=== PATIENT | male | born 1960 | race Asian ===

== ENCOUNTER 2017-03-05 15:32 | Emergency (ER) | payer OTHER ==
[~2017-03-05] VITALS: Ht 162.6 cm; Wt 59.0 kg
[~2017-03-05 15:32] MED LIST: LISI-661 PO; METO25 PO; OLAN10TA3 PO; RISP3 PO
[2017-03-05 16:02] VITALS: BP 183/118
[2017-03-05 16:18] LABS: GLUCOSE,POINT OF CARE 82 MG/DL (70-110)
== END 2017-03-05 18:21 | disposition home or self-care (01) ==
LOC: EMS 15:35
DX: D17.0 Benign lipomatous neoplasm of skin and subcutaneous tissue of head, face and neck (principal); I10 Essential (primary) hypertension; F17.210 Nicotine dependence, cigarettes, uncomplicated; F19.90 Other psychoactive substance use, unspecified, uncomplicated
CPT/HCPCS: 82962; 99283

== ENCOUNTER 2017-03-15 07:45 | Emergency (ER) | payer OTHER ==
[~2017-03-15] VITALS: Ht 167.6 cm; Wt 72.7 kg
[2017-03-15 08:02] LABS: GLUCOSE,POINT OF CARE 322 MG/DL (70-110)
[2017-03-15] MEDS ORDERED: HYDROCODONE/ACETAMINOPHEN 10-325 MG TABLET PO ONE (11:00)
[2017-03-15 11:41] LABS: GLUCOSE COMMENT 1 Doctor Notified; GLUCOSE,POINT OF CARE 131 MG/DL (70-110)
[2017-03-15] MEDS ORDERED: LIDOCAINE HCL/PF 1% 2 ML VIAL IM ONE (12:45)
[2017-03-15] MEDS ORDERED: CefTRIAXone SODIUM 1 GM/VIAL IM ONE (12:45)
[2017-03-15 13:22] VITALS: BP 134/96
== END 2017-03-15 13:26 | disposition home or self-care (01) ==
LOC: EMS 07:50
DX: L03.115 Cellulitis of right lower limb (principal); L03.116 Cellulitis of left lower limb; E11.9 Type 2 diabetes mellitus without complications; I10 Essential (primary) hypertension
CPT/HCPCS: 73610; 73630; 82962; 93970; 96372; 99284; J0696; J3490

== ENCOUNTER 2017-05-02 11:45 | Emergency (ER) | payer OTHER ==
[~2017-05-02] VITALS: Ht 162.6 cm; Wt 59.0 kg
[~2017-05-02 11:45] MED LIST changes: -LISI-661 PO; -METO25 PO; -RISP3 PO
[2017-05-02] MEDS ORDERED: COLC0.6T69 PO (12:04)
[2017-05-02] MEDS ORDERED: FENO160 PO (12:04)
[2017-05-02] MEDS ORDERED: ALLO300 PO (12:04)
[2017-05-02] MEDS ORDERED: CARV6 PO (12:04)
[2017-05-02] MEDS ORDERED: LISI-662 PO (12:04)
[2017-05-02 12:07] LABS: GLUCOSE,POINT OF CARE 181 MG/DL (70-110)
[2017-05-02] MEDS ORDERED: POVIDONE-IODINE 10% 15 ML SOLUTION UD TP ONE (14:45)
[2017-05-02] MEDS ORDERED: LIDOCAINE HCL 1% 10 ML VIAL INJ ONE (14:45)
[2017-05-02 15:15] VITALS: BP 111/65
[2017-05-02] MEDS ORDERED: BACITRACIN 0.9 GM PACKET OINTMENT TP ONE (15:15)
[2017-05-02] MEDS ORDERED: CefTRIAXone SODIUM 1 GM/VIAL IM ONE (15:15)
[2017-05-02] MEDS ORDERED: LIDOCAINE HCL/PF 1% 2 ML VIAL IM ONE (15:15)
[2017-05-02] MEDS ORDERED: ACETAMINOPHEN 325 MG TABLET PO ONE (15:30)
== END 2017-05-02 16:08 | disposition home or self-care (01) ==
LOC: EMS 11:48
DX: J86.9 Pyothorax without fistula (principal); L03.312 Cellulitis of back [any part except buttock and flank]; L98.9 Disorder of the skin and subcutaneous tissue, unspecified; E11.9 Type 2 diabetes mellitus without complications; I10 Essential (primary) hypertension; F17.210 Nicotine dependence, cigarettes, uncomplicated
CPT/HCPCS: 10060; 82962; 96372; 99284; J0696; J3490 ×2

== ENCOUNTER 2017-08-28 09:47 | Emergency (ER) | payer OTHER ==
[~2017-08-28] VITALS: Ht 165.1 cm; Wt 59.0 kg
[~2017-08-28 09:47] MED LIST changes: +ALLO300 PO; +CARV6 PO; +COLC0.6T67 PO; +FENO160 PO; +LISI-662 PO
[2017-08-28 11:15] LABS: BASOPHILS % (AUTO) 1.5 % (0.0-2.0); HEMATOCRIT 42.2 % (41-53); HEMOGLOBIN 14.2 g/dL (13.5-17.5); LYMPHOCYTES # (AUTO) 1.4 K/uL (1.0-4.8); LYMPHOCYTES % (AUTO) 28.2 % (22.0-44.0); MEAN CORPUSCULAR HEMOGLOBIN 31.9 pg (26.0-34.0); MEAN CORPUSCULAR HGB CONC 33.8 G/dL (31.0-37.0); MEAN CORPUSCULAR VOLUME 94 fL (80-100); MONOCYTES # (AUTO) 0.4 K/uL (0.1-1.0); MONOCYTES % (AUTO) 8.2 % (2.0-9.0); NEUTROPHILS # (AUTO) 2.2 K/uL (1.8-7.7); NEUTROPHILS % (AUTO) 42.9 % (40.0-70.0); PLATELET COUNT (AUTO) 284 K/uL (150-450); RED BLOOD CELL COUNT(AUTO) 4.47 MIL/uL (4.50-5.90); RED CELL DISTRIBUTION WIDTH 15.4 % (11.5-14.5); WHITE BLOOD COUNT (AUTO) 5.1 K/uL (4.5-11.0)
[2017-08-28 11:18] LABS: EOSINOPHILS % (AUTO) 19.2 % (1.0-6.0)
[2017-08-28 11:27] LABS: ANION GAP 7 mmol/L (8-16); CARBON DIOXIDE 31 mmol/L (22-29); CHLORIDE 103 mmol/L (98-107); CREATININE 1.17 mg/dL (0.60-1.30); GLOMERULAR FILTR. RATE CALC > 60 mL/min (>60); POTASSIUM 4.1 mmol/L (3.5-5.1); SODIUM SERUM 141 mmol/L (136-145); UREA NITROGEN, BLOOD 15 mg/dL (7-18)
[2017-08-28 11:29] LABS: PROTHROMBIN TIME 10.6 SEC (9.4-11.6)
[2017-08-28 11:32] LABS: ALANINE AMINOTRANSFERASE 22 U/L (12-78); ALBUMIN 3.6 g/dL (3.4-5.0); ASPARTATE AMINOTRANSFERASE 19 U/L (15-37); BILIRUBIN,TOTAL 0.1 mg/dL (0.1-1.0); TOTAL PROTEIN, SERUM 7.3 g/dL (6.4-8.2)
[2017-08-28 11:41] LABS: RBC MORPHOLOGY COMMENT NORMAL RBC MORPH
[2017-08-28 13:24] VITALS: BP 149/84
== END 2017-08-28 13:26 | disposition home or self-care (01) ==
LOC: EMS 09:49
DX: K62.5 Hemorrhage of anus and rectum (principal); K64.9 Unspecified hemorrhoids; E11.9 Type 2 diabetes mellitus without complications; I10 Essential (primary) hypertension; F17.210 Nicotine dependence, cigarettes, uncomplicated
CPT/HCPCS: 82271; 82962; 99284

== ENCOUNTER 2017-11-06 09:24 | Inpatient (IN) | payer MEDICAID, OTHER ==
[~2017-11-06] VITALS: Ht 162.6 cm; Wt 59.0 kg
[2017-11-06 09:42] LABS: GLUCOSE,POINT OF CARE 70 MG/DL (70-110)
[2017-11-06 10:07] LABS: BASOPHILS % (AUTO) 0.4 % (0.0-2.0); EOSINOPHILS % (AUTO) 3.4 % (1.0-6.0); HEMATOCRIT 53.1 % (41-53); LYMPHOCYTES # (AUTO) 0.7 K/uL (1.0-4.8); LYMPHOCYTES % (AUTO) 8.5 % (22.0-44.0); MEAN CORPUSCULAR HEMOGLOBIN 31.5 pg (26.0-34.0); MEAN CORPUSCULAR HGB CONC 33.9 G/dL (31.0-37.0); MEAN CORPUSCULAR VOLUME 93 fL (80-100); MONOCYTES # (AUTO) 0.2 K/uL (0.1-1.0); MONOCYTES % (AUTO) 2.6 % (2.0-9.0); NEUTROPHILS # (AUTO) 6.7 K/uL (1.8-7.7); NEUTROPHILS % (AUTO) 85.1 % (40.0-70.0); PLATELET COUNT (AUTO) 280 K/uL (150-450); RED BLOOD CELL COUNT(AUTO) 5.73 MIL/uL (4.50-5.90); RED CELL DISTRIBUTION WIDTH 14.2 % (11.5-14.5)
[2017-11-06 10:10] LABS: ANION GAP 7 mmol/L (8-16); CALCIUM, TOTAL 8.9 mg/dL (8.8-10.5); CARBON DIOXIDE 29 mmol/L (22-29); CHLORIDE 99 mmol/L (98-107); CREATININE 1.46 mg/dL (0.60-1.30); GLOMERULAR FILTR. RATE CALC 50 mL/min (>60); GLUCOSE,RANDOM 117 mg/dL (70-110); POTASSIUM 5.4 mmol/L (3.5-5.1); SODIUM SERUM 135 mmol/L (136-145); UREA NITROGEN, BLOOD 18 mg/dL (7-18)
[2017-11-06 10:15] LABS: ALANINE AMINOTRANSFERASE 41 U/L (12-78); ALBUMIN 4.1 g/dL (3.4-5.0); ALKALINE PHOSPHATASE 111 U/L (46-116); ASPARTATE AMINOTRANSFERASE 94 U/L (15-37); BILIRUBIN,TOTAL 0.2 mg/dL (0.1-1.0); TOTAL PROTEIN, SERUM 8.2 g/dL (6.4-8.2)
[2017-11-06 10:25] LABS: SALICYLATE 2.9 mg/dL (2.8-20.0)
[2017-11-06 10:33] LABS: ACETAMINOPHEN < 2 mcg/mL (10-30)
[2017-11-06] MEDS ORDERED: SODIUM CHLORIDE 0.9% 1,000 ML IV ONE (11:00)
[2017-11-06] MEDS ORDERED: INDO25 PO (11:39)
[2017-11-06] MEDS ORDERED: OMEP20 PO (11:39)
[2017-11-06] MEDS ORDERED: ONDANSETRON HCL 4 MG/2 ML VIAL IVP ONE (11:45)
[2017-11-06 11:59] LABS: INR 1.1 (0.9-1.1); PROTHROMBIN TIME 11.6 SEC (9.4-11.6)
[2017-11-06 14:04] LABS: AMPHET/METH SCREEN,URINE POSITIVE (NEGATIVE); BARBITURATE SCREEN, URINE NEGATIVE (NEGATIVE); BENZODIAZEPINES SCREEN,URINE NEGATIVE (NEGATIVE); CANNABINOID SCREEN,URINE NEGATIVE (NEGATIVE); COCAINE SCREEN,URINE NEGATIVE (NEGATIVE); METHADONE SCREEN, URINE NEGATIVE (NEGATIVE); OPIATE SCREEN,URINE NEGATIVE (NEGATIVE); PHENCYCLIDINE SCREEN,URINE NEGATIVE (NEGATIVE)
[2017-11-06] MEDS ORDERED: HALOPERIDOL 5 MG TABLET PO PRN (17:15)
[2017-11-06] MEDS ORDERED: LORazepam 2 MG TABLET PO PRN (17:15)
[2017-11-06] MEDS ORDERED: ZOLPIDEM TARTRATE 10 MG TABLET PO PRN (17:15)
[2017-11-06 21:10] VITALS: BP 98/64
[2017-11-07] MEDS: INDOMETHACIN 25 MG CAPSULE PO SCH ×2 (06:44→17:31)
[2017-11-07 08:00] VITALS: BP 115/69
[2017-11-07 08:05] LABS: CALCIUM, TOTAL 7.7 mg/dL (8.8-10.5); CHOL/HDL RATIO 2.7 (4.2-7.3); CREATININE 1.9 mg/dL (0.60-1.30); POTASSIUM 4.3 mmol/L (3.5-5.1)
[2017-11-07] MEDS ORDERED: MAGNESIUM HYDROXIDE SUSPENSION 30 ML UDCUP PO PRN (08:30)
[2017-11-07] MEDS ORDERED: ALBUTEROL SULFATE HFA 90 MCG/PUFF 8 GM INHALER IH PRN (08:30)
[2017-11-07] MEDS ORDERED: IBUPROFEN 600 MG TABLET PO PRN (08:30)
[2017-11-07] MEDS ORDERED: MAG HYDROX/AL HYDROX/SIMETH ES 30 ML SUSPENSION UDCUP PO PRN (08:30)
[2017-11-07] MEDS ORDERED: ACETAMINOPHEN 325 MG TABLET PO PRN (08:30)
[2017-11-07] MEDS ORDERED: BACITRACIN 28.4 GM OINTMENT TP PRN (08:30)
[2017-11-07] MEDS ORDERED: BENZOCAINE/MENTHOL LOZENGE [8 LOZENGES/PACKET] MM PRN (08:30)
[2017-11-07] MEDS ORDERED: ONDANSETRON HCL 4 MG TABLET PO PRN (08:30)
[2017-11-07] MEDS ORDERED: LOPERAMIDE HCL 2 MG CAPSULE PO PRN (08:30)
[2017-11-07] MEDS ORDERED: PETROLATUM,WHITE 71 GM JELLY TP PRN (08:30)
[2017-11-07] MEDS: CARVEDILOL 6.25 MG TABLET PO SCH ×2 (10:24→17:30)
[2017-11-07] MEDS: OMEPRAZOLE 20 MG CAPSULE PO SCH (10:24)
[2017-11-07] MEDS: COLCHICINE 0.6 MG TABLET PO SCH (10:24)
[2017-11-07] MEDS: OMEGA-3/DHA/EPA/FISH OIL 1,000 MG CAPSULE PO SCH (10:25)
[2017-11-07] MEDS: CHOLECALCIFEROL (VIT D3) 1,000 UNITS TABLET PO SCH (10:26)
[2017-11-07 19:05] VITALS: BP 118/70
[2017-11-07] MEDS: RisperiDONE 3 MG TABLET PO SCH (20:37)
[2017-11-08] MEDS: INDOMETHACIN 25 MG CAPSULE PO SCH ×2 (06:32→17:19)
[2017-11-08 07:23] LABS: CALCIUM, TOTAL 7.7 mg/dL (8.8-10.5); CREATININE 1.77 mg/dL (0.60-1.30); POTASSIUM 3.7 mmol/L (3.5-5.1)
[2017-11-08 07:31] LABS: BASOPHILS % (AUTO) 0.6 % (0.0-2.0); EOSINOPHILS % (AUTO) 9.3 % (1.0-6.0); HEMATOCRIT 43.2 % (41-53); HEMOGLOBIN 14.6 g/dL (13.5-17.5); LYMPHOCYTES # (AUTO) 0.3 K/uL (1.0-4.8); LYMPHOCYTES % (AUTO) 3.2 % (22.0-44.0); MEAN CORPUSCULAR HGB CONC 33.9 G/dL (31.0-37.0); MEAN CORPUSCULAR VOLUME 91 fL (80-100); MONOCYTES # (AUTO) 0.3 K/uL (0.1-1.0); MONOCYTES % (AUTO) 4.1 % (2.0-9.0); NEUTROPHILS # (AUTO) 6.5 K/uL (1.8-7.7); NEUTROPHILS % (AUTO) 82.8 % (40.0-70.0); RED BLOOD CELL COUNT(AUTO) 4.72 MIL/uL (4.50-5.90); RED CELL DISTRIBUTION WIDTH 14.2 % (11.5-14.5)
[2017-11-08 07:34] LABS: URIC ACID 10.5 mg/dL (2.6-7.2)
[2017-11-08 08:03] LABS: PLATELET COUNT (AUTO) 87 K/uL (150-450)
[2017-11-08 08:05] LABS: PLATELET MORPHOLOGY COMMENT LARGE PLTS PRESENT
[2017-11-08] MEDS: OMEPRAZOLE 20 MG CAPSULE PO SCH (09:06)
[2017-11-08] MEDS: OMEGA-3/DHA/EPA/FISH OIL 1,000 MG CAPSULE PO SCH (09:06)
[2017-11-08] MEDS: COLCHICINE 0.6 MG TABLET PO SCH (09:06)
[2017-11-08] MEDS: RisperiDONE 3 MG TABLET PO SCH ×2 (09:06→20:08)
[2017-11-08] MEDS: CHOLECALCIFEROL (VIT D3) 1,000 UNITS TABLET PO SCH (09:06)
[2017-11-08] MEDS: CARVEDILOL 6.25 MG TABLET PO SCH ×2 (09:06→17:00)
[2017-11-08 09:11] VITALS: BP 108/55
[2017-11-08 17:00] VITALS: BP 111/58
[2017-11-08] MEDS ORDERED: SODIUM CHLORIDE 1 GM TABLET PO ONE (18:30)
[2017-11-08] MEDS ORDERED: OLAN7.5T2 PO (18:33)
[2017-11-09] MEDS: INDOMETHACIN 25 MG CAPSULE PO SCH ×2 (06:53→17:14)
[2017-11-09 07:06] LABS: HEMATOCRIT 41.5 % (41-53); HEMOGLOBIN 14.2 g/dL (13.5-17.5); MEAN CORPUSCULAR HEMOGLOBIN 31.1 pg (26.0-34.0); MEAN CORPUSCULAR HGB CONC 34.3 G/dL (31.0-37.0); MEAN CORPUSCULAR VOLUME 91 fL (80-100); PLATELET COUNT (AUTO) 69 K/uL (150-450); RED BLOOD CELL COUNT(AUTO) 4.58 MIL/uL (4.50-5.90); RED CELL DISTRIBUTION WIDTH 13.8 % (11.5-14.5)
[2017-11-09 07:34] LABS: ANION GAP 10 mmol/L (8-16); CALCIUM, TOTAL 8.2 mg/dL (8.8-10.5); CARBON DIOXIDE 26 mmol/L (22-29); CHLORIDE 104 mmol/L (98-107); CREATININE 1.15 mg/dL (0.60-1.30); GLOMERULAR FILTR. RATE CALC > 60 mL/min (>60); GLUCOSE,RANDOM 92 mg/dL (70-110); PHOSPHORUS 2.5 mg/dL (2.5-4.9); POTASSIUM 3.7 mmol/L (3.5-5.1); SODIUM SERUM 140 mmol/L (136-145); UREA NITROGEN, BLOOD 27 mg/dL (7-18)
[2017-11-09 08:40] VITALS: BP 165/110
[2017-11-09] MEDS: RisperiDONE 3 MG TABLET PO SCH ×2 (08:42→20:38)
[2017-11-09] MEDS: CARVEDILOL 6.25 MG TABLET PO SCH ×2 (08:42→17:14)
[2017-11-09] MEDS: COLCHICINE 0.6 MG TABLET PO SCH (08:42)
[2017-11-09] MEDS: OMEGA-3/DHA/EPA/FISH OIL 1,000 MG CAPSULE PO SCH (08:42)
[2017-11-09] MEDS: OMEPRAZOLE 20 MG CAPSULE PO SCH (08:42)
[2017-11-09] MEDS: CHOLECALCIFEROL (VIT D3) 1,000 UNITS TABLET PO SCH (08:42)
[2017-11-09] MEDS: CloNIDine HCL 0.1 MG TABLET PO PRN (08:43)
[2017-11-09 08:46] VITALS: BP 165/108
[2017-11-09 12:47] LABS: EOSINOPHILS % (MANUAL) 17 % (1-6); LYMPHOCYTES % (MANUAL) 6 % (22-44); MONOCYTES % (MANUAL) 7 % (2-9); SEGMENTED NEUTROPHILS % 70 % (40-70)
[2017-11-09 12:49] LABS: PLATELET MORPHOLOGY COMMENT LARGE PLTS PRESENT
[2017-11-09 13:17] VITALS: BP 118/79
[2017-11-09 17:32] VITALS: BP 145/94
[2017-11-09] MEDS: MAGNESIUM OXIDE 400 MG TABLET PO SCH (20:38)
[2017-11-10] MEDS: INDOMETHACIN 25 MG CAPSULE PO SCH ×2 (07:01→16:15)
[2017-11-10 09:00] VITALS: BP 177/104
[2017-11-10] MEDS: MAGNESIUM OXIDE 400 MG TABLET PO SCH ×2 (09:03→16:15)
[2017-11-10] MEDS: RisperiDONE 3 MG TABLET PO SCH (09:03)
[2017-11-10] MEDS: CHOLECALCIFEROL (VIT D3) 1,000 UNITS TABLET PO SCH (09:03)
[2017-11-10] MEDS: CARVEDILOL 6.25 MG TABLET PO SCH ×2 (09:04→16:15)
[2017-11-10] MEDS: OMEPRAZOLE 20 MG CAPSULE PO SCH (09:04)
[2017-11-10] MEDS: COLCHICINE 0.6 MG TABLET PO SCH (09:04)
[2017-11-10] MEDS: OMEGA-3/DHA/EPA/FISH OIL 1,000 MG CAPSULE PO SCH (09:04)
[2017-11-10] MEDS: CloNIDine HCL 0.1 MG TABLET PO PRN ×2 (13:49→16:17)
[2017-11-10] MEDS ORDERED: RISP3 PO (15:21)
[2017-11-10] MEDS ORDERED: VITAD1000 PO (15:22)
[2017-11-10] MEDS ORDERED: MAGOX PO (15:23)
[2017-11-10] MEDS ORDERED: OMEG-135 PO (15:23)
== END 2017-11-10 18:00 | disposition home or self-care (01) | DRG 750 ==
LOC: EMS 09:26 → 3EI 20:23
PROVIDERS: ADMIT Psychiatry & Neurology Psychiatry; ATTEND Psychiatry & Neurology Psychiatry
DX: F25.0 Schizoaffective disorder, bipolar type (principal); N17.9 Acute kidney failure, unspecified; E87.1 Hypo-osmolality and hyponatremia; E83.42 Hypomagnesemia; E83.51 Hypocalcemia; E11.9 Type 2 diabetes mellitus without complications; E87.5 Hyperkalemia; I10 Essential (primary) hypertension; D72.819 Decreased white blood cell count, unspecified; F15.10 Other stimulant abuse, uncomplicated; E78.5 Hyperlipidemia, unspecified; F17.200 Nicotine dependence, unspecified, uncomplicated; F41.9 Anxiety disorder, unspecified; G47.00 Insomnia, unspecified; J44.9 Chronic obstructive pulmonary disease, unspecified; K21.9 Gastro-esophageal reflux disease without esophagitis; M10.9 Gout, unspecified; G24.01 Drug induced subacute dyskinesia; Z79.899 Other long term (current) drug therapy
CPT/HCPCS: 80074; 82962; 83735; 84100; 84550; 85007; 93005; 96361; 96374; 99285; G0480; G0481; J2405; J7030

== ENCOUNTER 2020-09-30 08:36 | Emergency (ER) | payer MEDICAID, OTHER ==
[~2020-09-30] VITALS: Ht 154.9 cm; Wt 72.7 kg
[~2020-09-30 08:36] MED LIST changes: -ALLO300 PO; +CHOL100018 PO; -COLC0.6T67 PO; +COLC0.6T73 PO; -FENO160 PO; +INDO-16 PO; -LISI-662 PO; +MAGOX PO; -OLAN10TA3 PO; +OMEG-135 PO; +OMEP20 PO; +RISP3TAB35 PO
[2020-09-30 08:52] VITALS: BP 156/90
[2020-09-30] MEDS ORDERED: LIDOCAINE 2%/EPI 1:200,000/PF 20 ML VIAL PERC ONE (10:15)
== END 2020-09-30 12:17 | disposition home or self-care (01) ==
LOC: EMS 08:36
DX: L02.212 Cutaneous abscess of back [any part, except buttock and flank] (principal); L72.3 Sebaceous cyst; F32.9 Major depressive disorder, single episode, unspecified; E11.9 Type 2 diabetes mellitus without complications; I10 Essential (primary) hypertension; F20.9 Schizophrenia, unspecified; F17.210 Nicotine dependence, cigarettes, uncomplicated; F19.90 Other psychoactive substance use, unspecified, uncomplicated
CPT/HCPCS: 10060

== ENCOUNTER 2020-11-14 08:49 | Emergency (ER) | payer OTHER ==
[~2020-11-14] VITALS: Ht 162.6 cm; Wt 72.7 kg
[2020-11-14 09:21] LABS: GLUCOSE,POINT OF CARE 110 MG/DL (70-110)
[2020-11-14] MEDS ORDERED: COLCHICINE 0.6 MG TABLET PO ONE (11:15)
[2020-11-14] MEDS ORDERED: INDOMETHACIN 50 MG CAPSULE PO ONE (11:15)
[2020-11-14 11:46] VITALS: BP 135/86
== END 2020-11-14 11:53 | disposition home or self-care (01) ==
LOC: EMS 08:53
DX: M10.9 Gout, unspecified (principal); M79.671 Pain in right foot; E11.9 Type 2 diabetes mellitus without complications; F32.9 Major depressive disorder, single episode, unspecified; I10 Essential (primary) hypertension; F20.9 Schizophrenia, unspecified; F17.210 Nicotine dependence, cigarettes, uncomplicated; F19.90 Other psychoactive substance use, unspecified, uncomplicated
CPT/HCPCS: 99283

== ENCOUNTER 2021-04-09 18:20 | Emergency (ER) | payer OTHER ==
[~2021-04-09] VITALS: Ht 162.6 cm; Wt 72.7 kg
[~2021-04-09 18:20] MED LIST changes: +MAGN400T7 PO; -MAGOX PO
[2021-04-09] MEDS ORDERED: COLCHICINE 0.6 MG TABLET PO ONE (19:15)
[2021-04-09] MEDS ORDERED: INDOMETHACIN 50 MG CAPSULE PO ONE (19:15)
[2021-04-09 19:35] VITALS: BP 157/91
== END 2021-04-09 19:40 | disposition home or self-care (01) ==
LOC: EMS 18:27
DX: M10.9 Gout, unspecified (principal); E11.9 Type 2 diabetes mellitus without complications; I10 Essential (primary) hypertension; F32.9 Major depressive disorder, single episode, unspecified; F20.9 Schizophrenia, unspecified; F17.210 Nicotine dependence, cigarettes, uncomplicated; F19.90 Other psychoactive substance use, unspecified, uncomplicated
CPT/HCPCS: 99283; 99406

== ENCOUNTER 2021-08-05 10:02 | Emergency (ER) | payer OTHER ==
[~2021-08-05] VITALS: Ht 162.6 cm; Wt 72.7 kg
[2021-08-05] MEDS ORDERED: ALBUTEROL SULFATE 2.5 MG/0.5 ML NEB SOLUTION NEB ONE ×2 (10:30→11:45)
[2021-08-05] MEDS ORDERED: IPRATROPIUM BROMIDE 0.5 MG/2.5 ML NEB SOLUTION NEB ONE ×2 (10:30→11:45)
[2021-08-05] MEDS ORDERED: MethylPREDNISolone SOD SUCC 125 MG/2 ML VIAL IVP ONE (10:30)
[2021-08-05 10:46] LABS: COVID AG,FIA SOURCE NASOPHARYNGEAL
[2021-08-05 10:50] LABS: HEMOGLOBIN 15.5 g/dL (13.5-17.5); MEAN CORPUSCULAR HGB CONC 32.9 G/dL (31.0-37.0); MEAN CORPUSCULAR VOLUME 94 fL (80-100); PLATELET COUNT (AUTO) 267 K/uL (150-450); RED BLOOD CELL COUNT(AUTO) 4.99 MIL/uL (4.50-5.90); RED CELL DISTRIBUTION WIDTH 16.1 % (11.5-14.5)
[2021-08-05 10:56] LABS: ANION GAP 5 mmol/L (8-16); CALCIUM, TOTAL 8.7 mg/dL (8.8-10.5); CARBON DIOXIDE 31 mmol/L (22-29); CHLORIDE 104 mmol/L (98-107); CREATININE 0.98 mg/dL (0.60-1.30); GLOMERULAR FILTR. RATE CALC > 60 mL/min (>60); GLUCOSE,RANDOM 98 mg/dL (70-110); POTASSIUM 4.3 mmol/L (3.5-5.1); SODIUM SERUM 140 mmol/L (136-145); UREA NITROGEN, BLOOD 15 mg/dL (7-18)
[2021-08-05 11:05] LABS: ALANINE AMINOTRANSFERASE 25 U/L (12-78); ALBUMIN 3.7 g/dL (3.4-5.0); ALKALINE PHOSPHATASE 74 U/L (46-116); ASPARTATE AMINOTRANSFERASE 23 U/L (15-37); BILIRUBIN,TOTAL 0.6 mg/dL (0.1-1.0); TOTAL PROTEIN, SERUM 7.6 g/dL (6.4-8.2)
[2021-08-05 11:12] LABS: BAND NEUTROPHILS % (MANUAL) 2 % (0-5); EOSINOPHILS % (MANUAL) 3 % (1-6); LYMPHOCYTES % (MANUAL) 28 % (22-44); MONOCYTES % (MANUAL) 1 % (2-9); SEGMENTED NEUTROPHILS % 66 % (40-70)
[2021-08-05 11:24] LABS: INFLUENZA TYPE A NEGATIVE FOR TYPE A (NEGATIVE); INFLUENZA TYPE B NEGATIVE FOR TYPE B (NEGATIVE)
[2021-08-05] MEDS ORDERED: SODIUM CHLORIDE 0.9% 1,000 ML IV ONE (11:45)
[2021-08-05 12:04] LABS: AMPHET/METH SCREEN,URINE POSITIVE (NEGATIVE); BARBITURATE SCREEN, URINE NEGATIVE (NEGATIVE); BENZODIAZEPINES SCREEN,URINE NEGATIVE (NEGATIVE); CANNABINOID SCREEN,URINE NEGATIVE (NEGATIVE); COCAINE SCREEN,URINE NEGATIVE (NEGATIVE); METHADONE SCREEN, URINE NEGATIVE (NEGATIVE); OPIATE SCREEN,URINE NEGATIVE (NEGATIVE)
[2021-08-05 12:10] LABS: PHENCYCLIDINE SCREEN,URINE NEGATIVE (NEGATIVE)
[2021-08-05] MEDS ORDERED: ALBUTEROL SULFATE HFA 90 MCG/PUFF 8 GM INHALER IH ONE (12:45)
[2021-08-05 13:10] VITALS: BP 189/99
== END 2021-08-05 13:12 | disposition home or self-care (01) ==
LOC: EMS 11:08
DX: J45.901 Unspecified asthma with (acute) exacerbation (principal); I10 Essential (primary) hypertension; F20.9 Schizophrenia, unspecified; F17.210 Nicotine dependence, cigarettes, uncomplicated; Z20.822 Contact with and (suspected) exposure to COVID-19
CPT/HCPCS: 36415; 71045; 80053; 80307; 83880; 84484; 85025; 87426; 87804; 93005; 94640; 96361; 96374; 99285; C9803; G0480; J2930; U0003; J3535; J7613

== ENCOUNTER 2021-11-22 08:23 | Emergency (ER) | payer OTHER ==
[~2021-11-22] VITALS: Ht 165.1 cm; Wt 63.6 kg
[~2021-11-22 08:23] MED LIST changes: +ALLO100T2 PO; +AMLO-258 PO; -CARV6 PO; -INDO-16 PO; +LISI-894 PO; -MAGN400T7 PO; -OMEP20 PO
[2021-11-22] MEDS ORDERED: ACETAMINOPHEN 500 MG TABLET PO ONE (08:45)
[2021-11-22] MEDS ORDERED: PERMETHRIN 5% 60 GM CREAM TP ONE (08:45)
[2021-11-22 09:05] LABS: BASOPHILS % (AUTO) 1.2 % (0.0-2.0); EOSINOPHILS % (AUTO) 9.1 % (1.0-6.0); HEMATOCRIT 40.2 % (41-53); HEMOGLOBIN 13.7 g/dL (13.5-17.5); LYMPHOCYTES # (AUTO) 0.8 K/uL (1.0-4.8); LYMPHOCYTES % (AUTO) 10.4 % (22.0-44.0); MEAN CORPUSCULAR HEMOGLOBIN 31.8 pg (26.0-34.0); MEAN CORPUSCULAR HGB CONC 34.2 G/dL (31.0-37.0); MEAN CORPUSCULAR VOLUME 93 fL (80-100); MONOCYTES # (AUTO) 0.4 K/uL (0.1-1.0); NEUTROPHILS # (AUTO) 5.7 K/uL (1.8-7.7); NEUTROPHILS % (AUTO) 74.3 % (40.0-70.0); PLATELET COUNT (AUTO) 323 K/uL (150-450); RED BLOOD CELL COUNT(AUTO) 4.32 MIL/uL (4.50-5.90); RED CELL DISTRIBUTION WIDTH 13.9 % (11.5-14.5)
[2021-11-22 09:13] LABS: ANION GAP 4 mmol/L (8-16); CALCIUM, TOTAL 9.2 mg/dL (8.8-10.5); CARBON DIOXIDE 33 mmol/L (22-29); CHLORIDE 102 mmol/L (98-107); GLOMERULAR FILTR. RATE CALC > 60 mL/min (>60); GLUCOSE,RANDOM 100 mg/dL (70-110); POTASSIUM 4.7 mmol/L (3.5-5.1); SODIUM SERUM 139 mmol/L (136-145); UREA NITROGEN, BLOOD 12 mg/dL (7-18)
[2021-11-22 09:22] LABS: ALANINE AMINOTRANSFERASE 33 U/L (12-78); ALBUMIN 3.8 g/dL (3.4-5.0); ALKALINE PHOSPHATASE 72 U/L (46-116); ASPARTATE AMINOTRANSFERASE 24 U/L (15-37); BILIRUBIN,TOTAL 0.5 mg/dL (0.1-1.0); CREATINE KINASE, TOTAL ONLY 80 U/L (39-308); TOTAL PROTEIN, SERUM 7.2 g/dL (6.4-8.2)
[2021-11-22 09:27] LABS: B-TYPE NATRIURETIC PEPTIDE 9 pg/mL (0-100)
[2021-11-22 09:49] VITALS: BP 140/90
[2021-11-22 10:30] LABS: COVID AG,FIA SOURCE NASOPHARYNGEAL
[2021-11-22 10:37] LABS: APPEARANCE,URINE CLEAR (CLEAR); BILIRUBIN,URINE NEGATIVE (NEGATIVE); GLUCOSE, URINE (UA) NEGATIVE (NEGATIVE); KETONES,URINE NEGATIVE (NEGATIVE); LEUKOCYTE ESTERASE ,URINE NEGATIVE (NEGATIVE); NITRATE,URINE NEGATIVE (NEGATIVE); OCCULT BLOOD,URINE NEGATIVE (NEGATIVE); PROTEIN,URINE NEGATIVE (NEGATIVE); UROBILINOGEN,URINE 0.2 mg/dL (<=1.0)
[2021-11-22 10:42] LABS: AMPHET/METH SCREEN,URINE NEGATIVE (NEGATIVE); BARBITURATE SCREEN, URINE NEGATIVE (NEGATIVE); BENZODIAZEPINES SCREEN,URINE NEGATIVE (NEGATIVE); CANNABINOID SCREEN,URINE NEGATIVE (NEGATIVE); COCAINE SCREEN,URINE NEGATIVE (NEGATIVE); METHADONE SCREEN, URINE NEGATIVE (NEGATIVE); OPIATE SCREEN,URINE NEGATIVE (NEGATIVE); PHENCYCLIDINE SCREEN,URINE NEGATIVE (NEGATIVE)
== END 2021-11-22 10:26 | disposition home or self-care (01) ==
LOC: EMS 08:28
DX: B86 Scabies (principal); M54.50 Low back pain, unspecified; R06.02 Shortness of breath; E78.00 Pure hypercholesterolemia, unspecified; F17.210 Nicotine dependence, cigarettes, uncomplicated; F19.90 Other psychoactive substance use, unspecified, uncomplicated; Z20.822 Contact with and (suspected) exposure to COVID-19; Z79.899 Other long term (current) drug therapy; W19.XXXA Unspecified fall, initial encounter; Y93.89 Activity, other specified; Y92.89 Other specified places as the place of occurrence of the external cause; Y99.8 Other external cause status
CPT/HCPCS: 36415; 70450; 71045; 72125; 80053; 80307; 81003; 82550; 83880; 84484; 85025; 87426; 93005; 99285; C9803; G0480

== ENCOUNTER 2022-02-23 12:43 | Emergency (ER) | payer OTHER ==
[~2022-02-23] VITALS: Ht 162.6 cm; Wt 70.5 kg
[~2022-02-23 12:43] MED LIST changes: +ALLO-97 PO; -ALLO100T2 PO; +OMEG-108 PO; -OMEG-135 PO
[2022-02-23 13:28] VITALS: BP 169/89
[2022-02-23 13:57] LABS: BASOPHILS % (AUTO) 0.7 % (0.0-2.0); EOSINOPHILS % (AUTO) 9.1 % (1.0-6.0); HEMATOCRIT 40.4 % (41-53); HEMOGLOBIN 13.5 g/dL (13.5-17.5); LYMPHOCYTES # (AUTO) 0.7 K/uL (1.0-4.8); LYMPHOCYTES % (AUTO) 10.7 % (22.0-44.0); MEAN CORPUSCULAR HEMOGLOBIN 31.2 pg (26.0-34.0); MEAN CORPUSCULAR HGB CONC 33.4 G/dL (31.0-37.0); MEAN CORPUSCULAR VOLUME 93 fL (80-100); MONOCYTES # (AUTO) 0.4 K/uL (0.1-1.0); NEUTROPHILS # (AUTO) 4.7 K/uL (1.8-7.7); NEUTROPHILS % (AUTO) 73.5 % (40.0-70.0); PLATELET COUNT (AUTO) 313 K/uL (150-450); RED BLOOD CELL COUNT(AUTO) 4.33 MIL/uL (4.50-5.90); RED CELL DISTRIBUTION WIDTH 14.7 % (11.5-14.5)
[2022-02-23 14:20] LABS: ANION GAP 7 mmol/L (8-16); CALCIUM, TOTAL 8.6 mg/dL (8.8-10.5); CARBON DIOXIDE 29 mmol/L (22-29); CHLORIDE 103 mmol/L (98-107); CREATININE 1.06 mg/dL (0.60-1.30); GLOMERULAR FILTR. RATE CALC > 60 mL/min (>60); GLUCOSE,RANDOM 213 mg/dL (70-110); POTASSIUM 3.9 mmol/L (3.5-5.1); SODIUM SERUM 139 mmol/L (136-145); UREA NITROGEN, BLOOD 13 mg/dL (7-18)
[2022-02-23 14:26] LABS: ALANINE AMINOTRANSFERASE 40 U/L (12-78); ALBUMIN 3.3 g/dL (3.4-5.0); ALKALINE PHOSPHATASE 74 U/L (46-116); ASPARTATE AMINOTRANSFERASE 39 U/L (15-37); BILIRUBIN,TOTAL 0.3 mg/dL (0.1-1.0); TOTAL PROTEIN, SERUM 6.4 g/dL (6.4-8.2)
== END 2022-02-23 15:22 | disposition home or self-care (01) ==
LOC: EMS 12:43
DX: F20.9 Schizophrenia, unspecified (principal); E78.00 Pure hypercholesterolemia, unspecified; M10.9 Gout, unspecified; F15.10 Other stimulant abuse, uncomplicated; F17.210 Nicotine dependence, cigarettes, uncomplicated; Z86.59 Personal history of other mental and behavioral disorders
CPT/HCPCS: 36415; 80053; 85025; 99283; G0480; 99284

== ENCOUNTER 2022-02-26 04:32 | Emergency (ER) | payer OTHER ==
[~2022-02-26] VITALS: Ht 162.6 cm; Wt 70.5 kg
[2022-02-26 05:20] VITALS: BP 158/107
[2022-02-27] MEDS ORDERED: DIPH25CA85 PO (08:24)
== END 2022-02-26 07:03 | disposition left against medical advice (07) ==
LOC: EMS 04:32
DX: Z53.21 Procedure and treatment not carried out due to patient leaving prior to being seen by health care provider (principal)

== ENCOUNTER 2022-02-27 04:38 | Emergency (ER) | payer OTHER ==
[~2022-02-27] VITALS: Ht 162.6 cm; Wt 70.5 kg
[2022-02-27 05:57] LABS: BASOPHILS % (AUTO) 0.4 % (0.0-2.0); EOSINOPHILS % (AUTO) 3.3 % (1.0-6.0); HEMATOCRIT 43.1 % (41-53); HEMOGLOBIN 14.3 g/dL (13.5-17.5); LYMPHOCYTES # (AUTO) 0.6 K/uL (1.0-4.8); LYMPHOCYTES % (AUTO) 7.2 % (22.0-44.0); MEAN CORPUSCULAR HGB CONC 33.2 G/dL (31.0-37.0); MEAN CORPUSCULAR VOLUME 94 fL (80-100); MONOCYTES # (AUTO) 0.6 K/uL (0.1-1.0); MONOCYTES % (AUTO) 6.9 % (2.0-9.0); NEUTROPHILS # (AUTO) 7.3 K/uL (1.8-7.7); NEUTROPHILS % (AUTO) 82.2 % (40.0-70.0); PLATELET COUNT (AUTO) 320 K/uL (150-450); RED BLOOD CELL COUNT(AUTO) 4.61 MIL/uL (4.50-5.90); RED CELL DISTRIBUTION WIDTH 14.7 % (11.5-14.5)
[2022-02-27 06:06] LABS: ANION GAP 4 mmol/L (8-16); CALCIUM, TOTAL 8.6 mg/dL (8.8-10.5); CARBON DIOXIDE 32 mmol/L (22-29); CHLORIDE 103 mmol/L (98-107); CREATININE 0.93 mg/dL (0.60-1.30); GLOMERULAR FILTR. RATE CALC > 60 mL/min (>60); GLUCOSE,RANDOM 80 mg/dL (70-110); POTASSIUM 4.5 mmol/L (3.5-5.1); SODIUM SERUM 139 mmol/L (136-145); UREA NITROGEN, BLOOD 26 mg/dL (7-18)
[2022-02-27 06:11] LABS: ALANINE AMINOTRANSFERASE 47 U/L (12-78); ALBUMIN 3.6 g/dL (3.4-5.0); ALKALINE PHOSPHATASE 79 U/L (46-116); ASPARTATE AMINOTRANSFERASE 45 U/L (15-37); BILIRUBIN,TOTAL 0.4 mg/dL (0.1-1.0)
[2022-02-27 07:26] VITALS: BP 146/92
[2022-02-27] MEDS ORDERED: DIPH25CA85 PO (08:24)
== END 2022-02-27 08:55 | disposition home or self-care (01) ==
LOC: EMS 04:38
DX: G47.00 Insomnia, unspecified (principal); E78.00 Pure hypercholesterolemia, unspecified; M10.9 Gout, unspecified; F17.210 Nicotine dependence, cigarettes, uncomplicated; F15.90 Other stimulant use, unspecified, uncomplicated
CPT/HCPCS: 36415; 80053; 85025; 99283; G0480